=== PATIENT | female | born 1935 | race Caucasian/White ===

== ENCOUNTER → 2018-07-15 12:54 | Outpatient (CLI) | payer OTHER, SELFPAY ==
--- NOTE | 2018-07-15 | DI.MRI.S_ITS ---
PROCEDURE: MR LUMBAR SPINE WO CON INDICATIONS: LOW BACK PAIN. BILATERAL LEG WEAKNESS TECHNIQUE: Noncontrast sagittal T1 spin echo and T2 fast echo, sagittal STIR, axial T1 and T2 fast spin echo through the lumbar spine. In cases with scoliosis, additional coronal T2 fast spin echo may be performed. COMPARISON: [facility], CT, ABDOMEN/PELVIS WITH CONTRAST, 05/09/2012, 9:56. [facility], MR, L-SPINE WITHOUT CONTRAST, 01/08/2011, 12:31. FINDINGS: Image quality: Excellent. Alignment and Curvature: Minimal retrolisthesis is seen at L1-L2 and L2-L3. Minimal S-shaped scoliotic curvature is seen. Bone Marrow: Marrow is of normal overall signal. A likely atypical vertebral body hemangioma is seen within the L1 vertebral body. No acute vertebral body compression fractures. Spinal Cord: Conus medullaris terminates at the L1 level. Visualized cord demonstrates normal signal and size. Paraspinous Soft Tissues: No paravertebral masses. There is partial visualization of the known abdominal aortic aneurysm. The left kidney is atrophic. Simple appearing bilateral renal cysts are incidentally noted. T12-L1: No significant abnormality is seen. L1-L2: The disc height is well-preserved. Loss of disc signal is seen at this level. Mild generalized disc bulge is seen. No significant neural foraminal or central canal narrowing are seen. Stable from the prior study. L2-L3: Moderate loss of disc height is seen. Loss of disc signal is seen. Moderate generalized disc bulge is seen. Mild bilateral neural foraminal narrowing is seen. Minimal to mild central canal narrowing is seen. These degenerative changes have progressed compared to 2011. L3-L4: The disc height is well-preserved. Loss of disc signal is seen at this level. Mild to moderate disc bulge is seen. There is mild to moderate right-sided and minimal left-sided neural foraminal narrowing seen. Mild central canal narrowing is seen. There has been progression compared to 2011. L4-L5: The disc height is well-preserved. Loss of disc signal is seen at this level. Moderate generalized disc bulge is seen. Moderate facet joint hypertrophy is seen. Moderate bilateral neural foraminal narrowing is seen. Mild central canal narrowing is seen. There has been progression compared to the prior MRI. L5-S1: The disc height is well-preserved. Loss of disc signal is seen at this level. Mild generalized disc bulge is seen. There is mild to moderate left-sided and minimal right-sided neural foraminal narrowing. No significant central canal narrowing is seen. These imaging findings are mildly progressed compared to the prior study. IMPRESSION: Multiple levels of lumbar spine degenerative change are seen, which have progressed compared to 2011. 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 Partial visualization of this patient's known abdominal aortic aneurysm. Dictated by: Bro Judd M.D. on 07/15/2018 at 14:44 Approved by: Bro Judd M.D. on 07/15/2018 at 14:51
== END ==
PROVIDERS: Family Provider Family Medicine; PCP Family Medicine; Visit Provider Orthopaedic Surgery
DX: M51.36 Other intervertebral disc degeneration, lumbar region (principal); M51.37 Other intervertebral disc degeneration, lumbosacral region; I71.4 Abdominal aortic aneurysm, without rupture; M54.5 Low back pain; R53.1 Weakness
CPT/HCPCS: 72148